=== PATIENT | female | born 1960 | race Caucasian/White ===

== ENCOUNTER → 2016-06-19 | Outpatient (CLI) | payer BC ==
--- NOTE | 2016-07-05 10:24 | KCIC ---
Bilateral digital screening mammograms with CAD: HISTORY Routine screening COMPARISON Comparison is made to previous examinations dated 05/26/2011 and 11/17/2010. FINDINGS Breast density category C. The skin and nipples show no abnormalities. No abnormal lymph nodes are seen in the axilla. The breast parenchyma shows heterogeneous density. There are small circumscribed nodules bilaterally which probably represent cysts but recommend further evaluation with bilateral breast ultrasound. There are no suspicious calcifications or architectural distortions. IMPRESSION Circumscribed nodules bilaterally consistent with probable cysts. Recommend further evaluation with ultrasound. This study was interpreted with the benefit of Computerized Aided Detection (CAD). Mammography is not 100% sensitive in detecting breast cancer. Therefore, a self breast exam and a clinical breast exam are very important. A negative mammogram does not negate a clinically suspicious finding and should not result in a delay in biopsying a clinically suspicious abnormality. BI-RADS category 0: Incomplete. Ultrasound followup is recommended. This patient's information has been entered into a reminder system for the patient to be notified with the results of this examination and a target date for her next mammograms. Electronically signed by: Minerva Murray MD (Jul 05, 2016 10:21:50)
== END | disposition home or self-care (01) ==
LOC: KCIC MAMMO 14:17
PROVIDERS: ATTEND Family Medicine
DX: Z12.31 Encounter for screening mammogram for malignant neoplasm of breast (principal)
CPT/HCPCS: G0202; 77067

== ENCOUNTER → 2016-07-17 | Outpatient (CLI) | payer BC ==
--- NOTE | 2016-07-17 17:40 | KCIC ---
Bilateral breast ultrasound: Reason for examination: Bilateral breast nodules on mammographic screening. Comparison is made to mammographic examination dated 06/19/2016. Ultrasound examination was performed bilaterally including all 4 quadrants and the retroareolar and axillary regions. There are multiple anechoic and hypoechoic lesions bilaterally consistent with benign appearing cystic and fibrocystic lesions which have benign appearances. The largest fibrocystic lesion in the left breast located at the 12 o'clock position 1 centimeter from the nipple measures 1.2 centimeters in greatest dimension. The largest fibrocystic lesion in the right breast located at the 10 o'clock position 1 centimeter from the nipple measures 1.1 centimeter in greatest dimension. No suspicious lesions are seen. No abnormal lymph nodes are seen in the axilla. Impression: Multiple benign appearing cystic and fibrocystic lesions bilaterally measuring up to 1.2 centimeters in size. No suspicious lesions are seen. Recommend 6 month sonographic followup. BI-RADS category 3: Probably benign. This patient's information has been entered into a reminder system for the patient to be notified with the results of this examination and a target date for her next mammograms. Electronically signed by: Minerva Murray MD (Jul 17, 2016 17:38:13)
== END | disposition home or self-care (01) ==
LOC: KCIC US 12:50
PROVIDERS: ATTEND Family Medicine
DX: R92.8 Other abnormal and inconclusive findings on diagnostic imaging of breast (principal)
CPT/HCPCS: 76641

== ENCOUNTER → 2019-10-01 | Outpatient (CLI) | payer BC ==
--- NOTE | 2019-10-01 18:50 | KCIC ---
Bilateral digital screening mammograms with 3-D tomosynthesis: Reason for examination: Routine screening. Comparison is made to previous study dated 06/19/2016 and ultrasound examination dated 07/17/2016. Bilateral mammograms in CC and oblique projections were obtained with 2-D imaging and 3-D tomosynthesis imaging on a Siemens Inspiration unit and reviewed on the workstation. Interpretation was made with the benefit of CAD. The skin and nipples show no abnormalities. No abnormal axillary lymph nodes are seen. The breast parenchyma is heterogeneously dense. (Breast density: Category C.) There are multiple small nodules throughout both breasts. Further evaluation with ultrasound is recommended. Impression: Multiple small nodular densities bilaterally. These likely represent small cystic and fibrocystic lesions as seen in this patient on previous ultrasound but recommend further evaluation with ultrasound. Your patient's mammogram demonstrates that she has dense breast tissue (breast density category C or D), which could hide abnormalities, and if she has other risk factors for breast cancer that have been identified, she might benefit from supplemental screening tests that may be suggested by you as her ordering physician. Dense breast tissue, in and of itself, is a relatively common condition. Therefore, this information is not provided to cause undue concern, but rather to raise your awareness and to promote discussion with your patient regarding the presence of other risk factors, in addition to dense breast tissue. Your patient's mammography results will be sent to her. BI-RAD Category 0: Incomplete. Needs additional imaging evaluation. "Our facility is accredited by the [employer] Mammography Program." This patient's information has been entered into a reminder system for the patient to be notified with the results of her examination and a target date for the next mammogram. Electronically signed by: Cynthia Murray MD (10/01/2019 6:47 PM) [email or web address]
== END ==
LOC: KCIC MAMMO 12:36
PROVIDERS: ATTEND Family Medicine
DX: Z12.31 Encounter for screening mammogram for malignant neoplasm of breast (principal); N63.20 Unspecified lump in the left breast, unspecified quadrant; N63.10 Unspecified lump in the right breast, unspecified quadrant
CPT/HCPCS: 77063; 77067

== ENCOUNTER → 2019-11-12 | Outpatient (CLI) | payer BC ==
--- NOTE | 2019-11-12 10:58 | KCIC ---
Bilateral breast ultrasound: Reason for examination: Nodular densities on screening mammogram. Comparison is made to mammographic exam dated 10/01/2019 and previous bilateral breast ultrasound dated 07/17/2016. Bilateral whole breast ultrasound including evaluation of all 4 quadrants and the retroareolar and axillary regions of both breasts was performed. The right breast shows presence of multiple hypoechoic fibrocystic type lesions in parallel orientation measuring up to 1.1 cm in greatest dimension. No suspicious-appearing nodules are seen. No abnormal appearing lymph nodes are seen in the right axilla. The left breast also shows presence of several small anechoic and hypoechoic lesions consistent with cysts and fibrocystic lesions which are subcentimeter in size. No suspicious nodules are seen. No abnormal appearing lymph nodes are seen in the left axilla. IMPRESSION: Multiple small benign-appearing cystic and fibrocystic type lesions. No suspicious lesion seen. Recommend 6 month follow-up with bilateral ultrasound. BI-RADS Category 3: Probably Benign. "Our facility is accredited by the [employer] Mammography [employer]." This patient's information has been entered into a reminder system for the patient to be notified with the results of her examination and a target date for the next mammogram. Electronically signed by: Cynthia Murray MD (11/12/2019 10:55 AM) [email or web address]
== END ==
LOC: KCIC US 09:44
PROVIDERS: ATTEND Family Medicine
DX: N60.11 Diffuse cystic mastopathy of right breast (principal); N64.89 Other specified disorders of breast
CPT/HCPCS: 76641

== ENCOUNTER → 2020-06-29 | Outpatient (CLI) | payer BC ==
--- NOTE | 2020-06-29 09:23 | KCIC ---
Bilateral breast ultrasound: Reason for examination: Follow-up nodules. Comparison is made to previous study dated 11/12/2019. Bilateral whole breast ultrasound including evaluation of all 4 quadrants and the retroareolar and ax illary regions of both breasts was performed. In the right breast, there is a 1.1 cm fibrocystic lesion at the 12:00 position 2 cm from the nipple which is stable. There continues to be a 3.7 mm hypoechoic fibrocystic lesion at the 2:00 position 2 cm from the nipple which has decreased in size. There is a 6.6 mm hypoechoic fibrocystic lesion in th e 4:00 position 1 cm from the nipple which is stable. There are 2 small circumscribed lesion at the 6 :00 position 1 cm from the nipple measuring 6.2 and 4.0 mm in greatest dimensions which are stable. T here continues to be a 8 mm cyst at the 9:00 position 3 cm from the nipple with adjacent 4.9 mm fibro cystic lesion which are stable. No suspicious nodules are seen. No abnormal appearing lymph nodes are seen in the right axilla. In the left breast at the 1:00 position 4 cm from the nipple, there is a 9.1 mm fibrocystic lesion. A t the 3:00 position, there is a 5.8 mm cyst with an adjacent 5.5 mm fibrocystic lesion which was hollie lar to previous exam. At the 10:00 position 3 cm from the nipple, there continues be a 4.5 mm cystic- appearing lesion which is stable. No suspicious nodules are seen. No abnormal appearing lymph nodes a re seen in the left axilla. IMPRESSION: Continued presence of benign-appearing cystic and fibrocystic lesions bilaterally which are stable. N o suspicious lesions are seen. Recommend routine mammographic follow-up. BI-RADS Category 2: Benign. "Our facility is accredited by the [employer] Mammography [employer]." This patient's information has been entered into a reminder system for the patient to be notified wit h the results of her examination and a target date for the next mammogram. Electronically signed by: Cynthia Murray MD (06/29/2020 9:21 AM) [email or web address]
== END ==
LOC: KCIC US 07:58
PROVIDERS: ATTEND Family Medicine
DX: N60.01 Solitary cyst of right breast (principal); N60.02 Solitary cyst of left breast
CPT/HCPCS: 76641